=== PATIENT | male | born 1960 | race Caucasian/White ===

== ENCOUNTER 2016-12-25 12:16 | Emergency (ER) | payer MEDICAID ==
[2016-12-25 12:23] VITALS: BP 161/114; PULSE 90; RESP 20; TEMP 97.9; O2SAT 97
[2016-12-25 12:50] LABS: AUTOMATED NEUTROPHIL # 5.4 TH/MM3 (1.8-7.7); BASOPHIL # 0.1 TH/MM3 (0-0.2); BASOPHIL % 0.6 % (0.0-2.0); EOSINOPHIL # 0.2 TH/MM3 (0-0.4); EOSINOPHIL % 2.1 % (0.0-4.0); HEMATOCRIT 44.6 % (39.0-51.0); HEMO FLAGS DIFF FINAL; LYMPH % 29.9 % (9.0-44.0); LYMPHOCYTE # 2.7 TH/MM3 (1.0-4.8); MEAN CELL VOLUME 90.2 FL (80.0-100.0); MEAN CORPUSCULAR HEMOGLOBIN 29.9 PG (27.0-34.0); MEAN CORPUSCULAR HGB CONC 33.1 % (32.0-36.0); MONO % 6.2 % (0.0-8.0); NEUT % 61.2 % (16.0-70.0); PLATELET COUNT 283 TH/MM3 (150-450); RED BLOOD COUNT 4.94 MIL/MM3 (4.50-5.90); RED CELL DISTRIBUTION WIDTH 12.1 % (11.6-17.2)
--- NOTE | 2016-12-25 12:57 | RADRPT ---
EXAM DATE/TIME: 12/25/2016 12:48 [facility] COMPARISON: No previous studies available for comparison. INDICATIONS : Left upper extremity numbness. RADIATION DOSE: 60.64 CTDIvol (mGy) MEDICAL HISTORY : None SURGICAL HISTORY : None. ENCOUNTER: Initial ACUITY: 1 day PAIN SCALE: 0/10 LOCATION: cranial TECHNIQUE: Multiple contiguous axial images were obtained of the head. Using automated exposure control and adj ustment of the mA and/or kV according to patient size, radiation dose was kept as low as reasonably a chievable to obtain optimal diagnostic quality images. DICOM format image data is available electro nically for review and comparison. FINDINGS: CEREBRUM: The ventricles are normal for age. No evidence of midline shift, mass lesion, hemorrhage or acute in farction. Focal area of encephalomalacia is noted in the left frontal lobe characteristic of an old i nfarct. No extra-axial fluid collections are seen. POSTERIOR FOSSA: The cerebellum and brainstem are intact. The 4th ventricle is midline. The cerebellopontine angle i s unremarkable. EXTRACRANIAL: The visualized portion of the orbits is intact. Paranasal sinuses are grossly clear. SKULL: The calvaria is intact. No evidence of skull fracture. CONCLUSION: 1. 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 2. No acute intracranial hemorrhage. Carmine Tejada MD on December 25, 2016 at 12:54 Board Certified Radiologist. This report was verified electronically.
[2016-12-25 13:00] LABS: CHLORIDE 104 MEQ/L (98-107); POTASSIUM 3.4 MEQ/L (3.5-5.1); SODIUM (NA) 138 MEQ/L (136-145)
[2016-12-25 13:04] LABS: ANION GAP 9 MEQ/L (5-15); BICARBONATE 25.1 MEQ/L (21.0-32.0); BLOOD UREA NITROGEN 17 MG/DL (7-18)
[2016-12-25 13:05] LABS: APTT (PATIENT) 28.1 SEC (24.3-30.1)
[2016-12-25 13:07] LABS: ALT (GPT) 16 U/L (12-78); AST (GOT) 10 U/L (15-37); GLOMERULAR FILTRATION RATE 100 ML/MIN (>89)
[2016-12-25 13:08] LABS: TOTAL BILIRUBIN ADULT 0.7 MG/DL (0.2-1.0)
[2016-12-25 13:10] LABS: ALKALINE PHOSPHATASE 90 U/L (45-117)
--- NOTE | 2016-12-25 13:12 | RADRPT ---
EXAM DATE/TIME: 12/25/2016 13:00 [facility] COMPARISON: No previous studies available for comparison. INDICATIONS : Chest pain, left arm numbness MEDICAL HISTORY : None. SURGICAL HISTORY : None. ENCOUNTER: Initial ACUITY: 2 days PAIN SCORE: 8/10 LOCATION: Bilateral chest FINDINGS: A single view of the chest demonstrates the lungs to be symmetrically aerated without evidence of mas s, infiltrate or effusion. The cardiomediastinal contours are unremarkable. Osseous structures are intact. CONCLUSION: Normal examination. Joselyn Madden MD on December 25, 2016 at 13:10 Board Certified Radiologist. This report was verified electronically.
[2016-12-25 13:30] VITALS: BP 171/100
[2016-12-25 13:32] LABS: BLOOD, URINE SMALL (NEG); GLUCOSE,URINE NEG (NEG); KETONE, URINE NEG (NEG); NITRITE,URINE NEG (NEG)
--- NOTE | 2016-12-25 13:32 | PD ---
HPI Chief Complaint: Chest Pain Time Seen by Provider: 12:35 Travel History International Travel<30 days: No Contact w/Intl Traveler<30days: No Traveled to known affect area: No History of Present Illness HPI This 56-year-old male says he had chest pain on Monday. The pain lasted about an hour and was quite severe. He says his left arm felt funny at that time. Says the next day his left arm felt weak. He does smoke cigarettes. He hasn't family history of heart disease. His been taking a lot of ibuprofen recently because of a toothache. He tried to pull the tooth last Monday but some cocaine on the tooth to use topically was unable to pull the tooth. He says he has taken over 2 bottles of ibuprofen recently. [facility] Past Medical History Medical History: Denies Significant Hx Diminished Hearing: No Tetanus Vaccination: > 5 Years Influenza Vaccination: No ?: Not Past Surgical History Surgical History: No Previous Surgery Social History Alcohol Use: Yes (OCC) Tobacco Use: Yes (05/02 PPD) Substance Use: Yes (SOME COCAINE USE ( MONDAY )) Allergies-Medications (Allergen,Severity, Reaction): Coded Allergies: No Known Allergies (Unverified , 12/25/16) Reported Meds & Prescriptions Reported Meds & Active Scripts Active No Active Prescriptions or Reported Medications Review of Systems General / Constitutional: No: Fever, Chills Eyes: No: Diploplia, Blurred Vision HENT: Positive: Dental Difficulties, No: Headaches, Vertigo Cardiovascular: Positive: Chest Pain or Discomfort Respiratory: No: Cough, Shortness of Breath Gastrointestinal: No: Vomiting Genitourinary: No: Urgency, Frequency Musculoskeletal: No: Myalgias Physical Exam Narrative GENERAL: Well-developed male SKIN: Focused skin assessment warm/dry. HEAD: Atraumatic. Normocephalic. EYES: Pupils equal and round. No scleral icterus. No injection or drainage. ENT: No nasal bleeding or discharge. Mucous membranes pink and moist. Teeth are in poor condition. He is swelling and tenderness of the right lower gum NECK: Trachea midline. No JVD. CARDIOVASCULAR: Regular rate and rhythm. No murmur appreciated. RESPIRATORY: No accessory muscle use. Clear to auscultation. Breath sounds equal bilaterally. GASTROINTESTINAL: Abdomen soft, non-tender, nondistended. Hepatic and splenic margins not palpable. MUSCULOSKELETAL: No obvious deformities. No clubbing. No cyanosis. No edema. NEUROLOGICAL: Awake and alert. No obvious cranial nerve deficits. Motor grossly within normal limits. Normal speech. PSYCHIATRIC: Appropriate mood and affect; insight and judgment normal. Data Data Last Documented VS Vital Signs Date Time Temp Pulse Resp B/P (MAP) Pulse Ox O2 Delivery O2 Flow Rate FiO2 12/25/16 13:30 74 18 171/100 (123) 97 12/25/16 12:23 97.9 Orders Orders Complete Blood Count With Diff (12/25/16 12:36) Comprehensive Metabolic Panel (12/25/16 12:36) Troponin I (12/25/16 12:36) Prothrombin Time / Inr (Pt) (12/25/16 12:36) Act Partial Throm Time (Ptt) (12/25/16 12:36) Urinalysis - C+S If Indicated (12/25/16 12:36) Chest, Single Ap (12/25/16 12:36) Ct Brain W/O Iv Contrast(Rout) (12/25/16 12:36) Labs Laboratory Tests Test 12/25/16 12:20 12/25/16 13:20 White Blood Count 9.0 TH/MM3 Red Blood Count 4.94 MIL/MM3 Hemoglobin 14.8 GM/DL Hematocrit 44.6 % Mean Corpuscular Volume 90.2 FL Mean Corpuscular Hemoglobin 29.9 PG Mean Corpuscular Hemoglobin Concent 33.1 % Red Cell Distribution Width 12.1 % Platelet Count 283 TH/MM3 Mean Platelet Volume 8.0 FL Neutrophils (%) (Auto) 61.2 % Lymphocytes (%) (Auto) 29.9 % Monocytes (%) (Auto) 6.2 % Eosinophils (%) (Auto) 2.1 % Basophils (%) (Auto) 0.6 % Neutrophils # (Auto) 5.4 TH/MM3 Lymphocytes # (Auto) 2.7 TH/MM3 Monocytes # (Auto) 0.6 TH/MM3 Eosinophils # (Auto) 0.2 TH/MM3 Basophils # (Auto) 0.1 TH/MM3 CBC Comment DIFF FINAL Differential Comment Prothrombin Time 11.0 SEC Prothromb Time International Ratio 1.0 RATIO Activated Partial Thromboplast Time 28.1 SEC Blood Urea Nitrogen 17 MG/DL Creatinine 0.80 MG/DL Random Glucose 120 MG/DL Total Protein 7.4 GM/DL Albumin 3.6 GM/DL Calcium Level 8.5 MG/DL Alkaline Phosphatase 90 U/L Aspartate Amino Transf (AST/SGOT) 10 U/L Alanine Aminotransferase (ALT/SGPT) 16 U/L Total Bilirubin 0.7 MG/DL Sodium Level 138 MEQ/L Potassium Level 3.4 MEQ/L Chloride Level 104 MEQ/L Carbon Dioxide Level 25.1 MEQ/L Anion Gap 9 MEQ/L Estimat Glomerular Filtration Rate 100 ML/MIN Troponin I LESS THAN 0.02 NG/ML Urine pH 7.0 Urine Protein NEG mg/dL Urine Glucose (UA) NEG mg/dL Urine Ketones NEG mg/dL Urine Occult Blood SMALL Urine Nitrite NEG Urine Bilirubin NEG Urine Leukocyte Esterase NEG MDM Medical Decision Making Medical Screen Exam Complete: Yes Emergency Medical Condition: Yes Medical Record Reviewed: Yes Differential Diagnosis Differential includes dental abscess, hypertension, chest pain Narrative Course Patient had chest pain over the day ago and has not had any since. His workup is negative. He had some CT scan is suggestive of a left old left frontal stroke otherwise negative. She'll be placed on penicillin and Lortab for his toothache and I will also prescribe lisinopril for his high blood pressure Diagnosis Primary Impression: Dental abscess Additional Impression: Hypertension Qualified Codes: I10 - Essential (primary) hypertension Scripts Lisinopril (Lisinopril) 10 Mg Tab 10 MG PO DAILY for 30 Days, #30 TAB 0 Refills Prov: Cody Garcia MD 12/25/16 Hydrocodone-Acetaminophen (Lortab) 7.5-325 Mg Tab 1 TAB PO Q4H Y for PAIN, #20 TAB 0 Refills Prov: Cody Garcia MD 12/25/16 Penicillin V Potassium (Penicillin V Potassium) 500 Mg Tab 500 MG PO Q8H for Infection, #40 TAB 0 Refills Prov: Cody Garcia MD 12/25/16 Disposition: 01 DISCHARGE HOME Condition: Stable Cody Garcia MD Dec 25, 2016 13:32
[2016-12-25 13:34] LABS: METHOD OF COLLECTION CLEAN CATCH; URINE COLOR YELLOW (YELLW/STRAW)
[2016-12-25 13:36] LABS: COMMENT (UR) CULT NOT INDICATED; CULTURE IF INDICATED CULT NOT INDICATED; WBC, URINE 0-2 /hpf (0-5)
[2016-12-25] MEDS ORDERED: LISI10TA3 PO (13:39)
[2016-12-25] MEDS ORDERED: PENI500T PO (13:39)
[2016-12-25] MEDS ORDERED: HYDR-3534 PO (13:39)
--- NOTE | 2016-12-26 15:08 | EKG ---
Date Performed: 12/25/2016 Time Performed: 12:21:08 PTAGE: 56 years EKG: Sinus rhythm INCOMPLETE RIGHT BUNDLE BRANCH BLOCK BORDERLINE ECG NO PREVIOUS TRACING DOCTOR: Pascual Salas Interpretating Date/Time 12/26/2016 15:06:14
== END 2016-12-25 13:50 | disposition home or self-care (01) ==
LOC: PHED 12:16
DX: K04.7 Periapical abscess without sinus (principal); I10 Essential (primary) hypertension; F17.210 Nicotine dependence, cigarettes, uncomplicated
CPT/HCPCS: 70450; 71010; 80053; 81001; 84484; 85025; 85610; 85730; 93005; 99285